=== PATIENT | female | born 1965 | race Caucasian/White ===

== ENCOUNTER 2021-02-15 12:45 | Emergency (ER) | payer OTHER ==
--- NOTE | 2021-02-15 13:15 | EDM.PDOC ---
ED HPI GENERAL MEDICAL PROBLEM - General Stated Complaint: HEAVINESS IN CHEST Time Seen by Provider: 02/15/21 12:55 Source of Information: Reports: Patient History Limitations: Reports: No Limitations - History of Present Illness INITIAL COMMENTS - FREE TEXT/NARRATIVE: c/o dizzy 3d ago pt was dizzy, lightheaded, N, warm, not able to cool off, did not take her temp slept okay that night and felt okay 2d ago had nausea 2d ago, was doing painting at home over the weekend went to bed last night (Sun) at 10p, up at 5:30a, went to work at [employer] at the [employer] at 7:30a, ate a sandwich for bfast, had some fatigue at work, tingling inside her left arm, occasional N no pain, did have slight chest discomfort at one point which she thought was d/t her asthma and humidity no c/o now used her asthma HFA this AM BM yesterday and today, soft PMH: asthma meds: asthma hfa, antidepressant [id number]066070466004510403949162072838 [id number] [id number]6809820479969986670363936517191413981949 [id number]9301242559156706829984979602422911001153264 [id number] [id number]943997810324153912279496372944983373399062959 59246493665236906441119640346008029418550008723046078451783059671340843730108222 9030765826117262567069155288013346217229 72620817728852438541210755438298966891450035929640658180198926327719252392375983 20024458258612953900136605777418506034519166648248987629258287084165554717426001 2662453122315168031964126668020529309181 23994603663714923807320248806997152581243858473224248401109435396176192325053129 77817975191949809370463041123081997663254013928023975733939061382390886909015560 6942286023781507114603309075876500078910 21360523276278621645329508100629133806775628729198529056864346662860277939689947 17802515546453108537745682152163025711299185750083523090691075579853638372183555 5859618551359367958356028202023013795521 62002842636928882826800564929025760695494975199498447993059383470474817660344700 44520041483719698412473709119490685846622478689794813747931755527780297088875175 8350781456707525461548486715836814327745 89775053256777431275891234517166732440446718967288409958726753673904093381255889 32710797658153813469536885704617270927952868949763464162560890581691614711493876 4804467004514507785765091113405863217288 19202983524948300181121865106262186587781565573205652785996821861857246402028306 33995667856562065692200546603793273370072530170795577838464731480794965273220904 0804520631561166336457920364225776560862 87386250055167996870149377587163607524758598842531752193767558996774098929251486 73894828567351705693156580868854396669036966849919676907624711289324775125309652 5523126644170929563695282232291262850062 93841143572848915559765414100277410207800006214525728280416958455691150309496948 97378280797091555071494274099642425686976185627979813000206412999420599038089522 3266097059500351976907043728174095417936 95543592239029214201792105820422321766503450633947593597870136110259503224127220 95751537573954325235672595027527376344737471541033214362692242230320588755577233 2142533723250767232504726324126608905574 89446195280544067951189798216611840166694782612078838369922564736906472946233407 57376648112327050396457335004266693553630657244384738978499013985522527723497683 4341500632095940468662943419963288069934 20423362061158020952386110042791386605434040563755651618596763955843846028772334 20981698158185950426903566279475393178868527968656168938647643499295803441387966 8139921251659078889718425939979032109866 21288405703305155477680382198829159207691674665992631430667706792798364344352491 56960653023897677735883248423581990800162958143984063230838354562851915971086888 3879382594877651595934828067282086385845 94430992212534420504272689529386223628000017776851565802280678853508627021743236 62970098095637382819848987125784910603347585094274488009179161207847156849321663 9854882135951026952505455012060868219398 56591948036303703924088399986835564952658701644085033399520350764502457995398297 05940887975648888375015171425405019183209139767692438423102490535458643219191439 0888575975238560933861217672136933220177 46195141296197997831801506930408644652507564650937995134347945592842604305537185 63268734106493037051184392966690350304612341460330190315039624962999849956077088 5376584857160367014988643167449568068997 64443788831481963919379242047628399084136275971826874318373898753799500773876627 22462565448104614128900503443181719998507966676203635922053420239055300328187245 1057565934728062787608763788375849909046 69307070155118610690242583305345579818896926980651269986615784598477649976826756 12350790382449409610094072592172382083745502942410179811411791547911243831469136 1965423875251615395152634288532930215802 53442595583038603080932495797796831118213988502648034018085258407326265094783231 09822718550486088972399706688047703010966379472610178529568549609681274355054486 5162410002415773600249105370889359149099 64933474960224019812181431865120901680617650582205735453598114166519864335319375 78790618013241921149869632222926963744901910108028648264869858521822828143477003 3742553644504738758012303723029985987598 29962957000333230221693106286798983487026331646192119174879620621800332416691437 51524884244884974645506747828216345696093155660168287245248517460547049383083018 0248516481312907694816473366588481954127 55601293167589038120130627130981343415930039780652573682304481464332882915164248 72347998459400561147760061106510961241403194699357424852108704737751170189171113 8930299677492620179123269588906491553358 66502455159961494329424667034667407609808141496569591622857494465028495869689281 07335065856431131997274600346320126737783651798704254574125746475136318156625362 0861334959770621409613265631883220607373 04184353363886985571786655851825174338261335868977542474443240566942921923460864 19121911313409325911735236216626921185264564745889593986778773722523191927788740 6110836136709275391880097582525840607730 90056834305619285832046686861730679719242091095143612111779134531329342990882580 26774331049729936532297062791877578148370788413066121554027279321108121293447080 7773175848786402650951714555512066637996 77129664300104577228980511562024976366620073884700573236272580798521841687540099 32560908161914760704822347143148988748146967800273433129244064261936905754006929 5326247531728182526104892107729180365346 06957103792966683837231225735353301458247719943701976628536110480495561776022125 52800790237842319379602943314939503171907959070992082677661603257891128687196766 8756873674147518950224091094298902072927 14490665725806200628575820434365650990046388000625543443008418153482704010629009 60045775781646850460303611709389824174259601994918508817792974749179392050627384 4179742787355266685820329193341813981706 76784940516421922139249613848188613060914448396907240253543833139621857478410681 48615016129670025250268603717581997053594853525758882371038467816468974707892744 3818493480336334410349592697872960743561 56726777708904275852335029882267379686376888029957798931152710301953202000402688 65292701712696809439520460358253951120555095851007883218431440076586062647591630 3206672851260121238403727962309309066553 52728822091484701200779706945018084857409985870462364560151178385795396044106709 86046516501783339366282835344331743884482512820142636929839168354510040077399671 750977289535164536726040746899935100532120vb Chest Pain Score (Numeric/FACES): 1 - Related Data Allergies Allergy/AdvReac Type Severity Reaction Status Date / Time No Known Allergies Allergy Verified 03/23/15 15:21 Home Meds: Home Meds Albuterol [Proair HFA] 2 puff INH ASDIRECTED PRN 03/23/15 [History] Mometasone Furoate [Asmanex] 1 puff INH BID 03/23/15 [History] Escitalopram [Lexapro] 20 mg PO DAILY 02/15/21 [History] ED ROS GENERAL - Review of Systems Review Of Systems: See Below Constitutional: Reports: Fatigue HEENT: Reports: No Symptoms Respiratory: Reports: No Symptoms Cardiovascular: Reports: No Symptoms Endocrine: Reports: No Symptoms GI/Abdominal: Reports: Nausea. Denies: Constipation, Diarrhea : Reports: No Symptoms Musculoskeletal: Reports: No Symptoms Skin: Reports: No Symptoms Neurological: Reports: No Symptoms Psychiatric: Reports: No Symptoms Hematologic/Lymphatic: Reports: No Symptoms Immunologic: Reports: No Symptoms ED EXAM, GENERAL - Physical Exam Exam: See Below Exam Limited By: No Limitations General Appearance: Alert, WD/WN, Anxious Ears: Hearing Grossly Normal Nose: Normal Inspection Throat/Mouth: Normal Inspection, Normal Voice, No Airway Compromise Head: Atraumatic, Normocephalic Neck: Normal Inspection, Supple, Non-Tender, Full Range of Motion. No: Lymphadenopathy (R), Lymphadenopathy (L) Respiratory/Chest: No Respiratory Distress, Lungs Clear, Normal Breath Sounds, Chest Non-Tender Cardiovascular: Regular Rate, Rhythm, No Gallop, No Murmur, Other (1+ pretib edema, trace thigh edema) GI/Abdominal: Soft, Non-Tender, No Distention Back Exam: Normal Inspection Extremities: Normal Inspection, Normal Range of Motion Neurological: Alert, Oriented, CN II-XII Intact, Normal Cognition, No Motor/Se nsory Deficits Psychiatric: Anxious Skin Exam: Warm, Dry, Intact, Normal Color, No Rash Lymphatic: No Adenopathy Course - Vital Signs Last Recorded V/S: Last Vital Signs Temp 36.8 C 02/15/21 12:45 Pulse 58 L 02/15/21 12:45 Resp 16 02/15/21 12:45 BP 124/67 02/15/21 12:45 Pulse Ox 96 02/15/21 12:45 - Orders/Labs/Meds Orders: Active Orders 24 hr Category Date Time Status URINALYSIS W/MICROSCOPIC [UA W/MICROSCOPIC] [URIN] Stat Lab 02/15/21 13:25 Results Labs: Laboratory Tests 02/15/21 02/15/21 02/15/21 Range/Units 13:15 13:15 13:15 WBC 6.4 (3.0-10.3) x10-3/uL RBC 4.08 (3.60-5.20) x10(6)uL Hgb 12.4 (11.4-15.5) g/dL Hct 36.8 (34.2-48.2) % MCV 90.2 (76.7-100.5) fL MCH 30.5 (23.9-33.9) pg MCHC 33.8 (31.9-34.8) g/dL RDW 13.0 (12.3-16.5) % Plt Count 257 (151-488) x10(3)uL MPV 7.2 (7.1-12.4) fL Neut % (Auto) 53.9 (30.8-76.2) % Lymph % (Auto) 35.3 (18.4-52.1) % [place] % (Auto) 9.6 (4.4-15.7) % Eos % (Auto) 0.8 (0.6-8.1) % Baso % (Auto) 0.4 (0.2-1.5) % Neut # (Auto) 3.4 (1.5-6.3) x10-3/uL Lymph # (Auto) 2.3 (1.0-4.4) x10-3/uL [place] # (Auto) 0.6 (0.3-1.0) x10-3/uL Eos # (Auto) 0.1 (0.0-0.8) x10-3/uL Baso # (Auto) 0.0 (0.0-0.1) x10-3/uL Sodium 137 (135-145) mmol/L Potassium 3.8 (3.5-5.3) mmol/L Chloride 100 (100-110) mmol/L Carbon Dioxide 27 (21-32) mmol/L BUN 18 (7-18) mg/dL Creatinine 0.8 (0.55-1.02) mg/dL Est Cr Clr Drug Dosing TNP Estimated GFR (MDRD) > 60 (>60) BUN/Creatinine Ratio 22.5 H (9-20) Glucose 103 (80-116) mg/dL Calcium 8.6 (8.6-10.2) mg/dL Total Bilirubin 0.4 (0.1-1.3) mg/dL AST 20 (5-25) IU/L ALT 34 (12-36) U/L Alkaline Phosphatase 78 (56-112) IU/L Troponin I 4.2 (4.0-60.3) pg/mL C-Reactive Protein 0.2 L (0.5-0.9) mg/dL Total Protein 7.5 (6.0-8.0) g/dL Albumin 3.8 (3.5-5.2) g/dL Globulin 3.7 g/dL Albumin/Globulin Ratio 1.0 Urine Color (YELLOW) Urine Appearance (CLEAR) Urine pH (5.0-6.5) Ur Specific [place] (1.010-1.025) Urine Protein (NEGATIVE) mg/dL Urine Glucose (UA) (NORMAL) mg/dL Urine Ketones (NEGATIVE) mg/dL Urine Occult Blood (NEGATIVE) Urine Nitrite (NEGATIVE) Urine Bilirubin (NEGATIVE) Urine Urobilinogen (NEGATIVE) mg/dL Ur Leukocyte Esterase (NEGATIVE) Urine WBC (0-5) Ur Squamous Epith Cells (NS,R,O) Urine Bacteria (NS) 02/15/21 Range/Units 13:25 WBC (3.0-10.3) x10-3/uL RBC (3.60-5.20) x10(6)uL Hgb (11.4-15.5) g/dL Hct (34.2-48.2) % MCV (76.7-100.5) fL MCH (23.9-33.9) pg MCHC (31.9-34.8) g/dL RDW (12.3-16.5) % Plt Count (151-488) x10(3)uL MPV (7.1-12.4) fL Neut % (Auto) (30.8-76.2) % Lymph % (Auto) (18.4-52.1) % [place] % (Auto) (4.4-15.7) % Eos % (Auto) (0.6-8.1) % Baso % (Auto) (0.2-1.5) % Neut # (Auto) (1.5-6.3) x10-3/uL Lymph # (Auto) (1.0-4.4) x10-3/uL [place] # (Auto) (0.3-1.0) x10-3/uL Eos # (Auto) (0.0-0.8) x10-3/uL Baso # (Auto) (0.0-0.1) x10-3/uL Sodium (135-145) mmol/L Potassium (3.5-5.3) mmol/L Chloride (100-110) mmol/L Carbon Dioxide (21-32) mmol/L BUN (7-18) mg/dL Creatinine (0.55-1.02) mg/dL Est Cr Clr Drug Dosing Estimated GFR (MDRD) (>60) BUN/Creatinine Ratio (9-20) Glucose (80-116) mg/dL Calcium (8.6-10.2) mg/dL Total Bilirubin (0.1-1.3) mg/dL AST (5-25) IU/L ALT (12-36) U/L Alkaline Phosphatase (56-112) IU/L Troponin I (4.0-60.3) pg/mL C-Reactive Protein (0.5-0.9) mg/dL Total Protein (6.0-8.0) g/dL Albumin (3.5-5.2) g/dL Globulin g/dL Albumin/Globulin Ratio Urine Color Yellow (YELLOW) Urine Appearance Clear (CLEAR) Urine pH 6.0 (5.0-6.5) Ur Specific [place] 1.010 (1.010-1.025) Urine Protein Negative (NEGATIVE) mg/dL Urine Glucose (UA) Normal (NORMAL) mg/dL Urine Ketones Negative (NEGATIVE) mg/dL Urine Occult Blood Negative (NEGATIVE) Urine Nitrite Negative (NEGATIVE) Urine Bilirubin Negative (NEGATIVE) Urine Urobilinogen Normal (NEGATIVE) mg/dL Ur Leukocyte Esterase Negative (NEGATIVE) Urine WBC 0-5 (0-5) Ur Squamous Epith Cells Occasional (NS,R,O) Urine Bacteria Few H (NS) Meds: Medications Discontinued Medications Generic Name Dose Route Start Last Admin Trade Name Freq PRN Reason Stop Dose Admin Al Hydroxide/Mg Hydroxide 30 0 ml 02/15/21 13:57 02/15/21 14:07 ml/ Lidocaine HCl 15 ml PO 02/15/21 13:58 45 ml ONETIME ONE Administration - Re-Assessments/Exams Free Text/Narrative Re-Assessment/Exam: 02/15/21 13:59 labs neg, d/w pt and pt stated she had no sxs, declined N med at home then pt stated she still had chest heaviness 1/10 and pointed to her lower sternum, says onset was 11a when she walked across campus, will give GI cocktail 02/15/21 14:21 pt told RN her heaviness in her lower sternum was 0.5/10, that it went away with the GI cocktail, then said that it was still there "when I lay down" difficult to get consistent story, there is inconsistency and tangential information in the context of anxiety, yet there is no hx or PE or labs that suggest CV etiology Departure - Departure Time of Disposition: 14:26 Disposition: Home, Self-Care 01 Condition: Good Clinical Impression: Atypical chest pain, Nausea - Discharge Information *PRESCRIPTION DRUG MONITORING PROGRAM REVIEWED*: Not Applicable *COPY OF PRESCRIPTION DRUG MONITORING REPORT IN PATIENT AZEB: Not Applicable Instructions: Nonspecific Chest Pain, Adult, Nausea, Adult Referrals: Dulce Krause [facility]TER [Primary Care Provider] - Additional Instructions: Your EKG and blood and urine tests are within normal limits. Eat a light lunch when you get home. Rest today. See a PCP in 2 days. Return to Emergency Department if you feel worse. Sepsis Event Note (ED) - Focused Exam Vital Signs: Vital Signs Temp Pulse Resp BP Pulse Ox 02/15/21 12:45 36.8 C 58 L 16 124/67 96 - My Orders Last 24 Hours: My Active Orders 02/15/21 13:25 URINALYSIS W/MICROSCOPIC [UA W/MICROSCOPIC] [URIN] Stat - Assessment/Plan Last 24 Hours: My Active Orders 02/15/21 13:25 URINALYSIS W/MICROSCOPIC [UA W/MICROSCOPIC] [URIN] Stat
[2021-02-15] MEDS ORDERED: Alum Hydroxide/Mag Hydroxide 30 ML, Lidocaine 2% 15 ML PO ONE ×2 (13:57)
[2021-02-15 15:15] VITALS: BP 115/65; PULSE 77
== END 2021-02-15 14:55 | disposition home or self-care (01) ==
LOC: FB.ED 12:45
DX: R07.89 Other chest pain (principal); R11.0 Nausea
CPT/HCPCS: 36415; 80053; 81001; 84484; 85025; 86140; 93005; 99285; A9270